=== PATIENT | female | born 1990 | race Caucasian/White ===

== ENCOUNTER 2020-12-17 23:37 | Emergency (ER) | payer OTHER ==
[~2020-12-17 23:37] MED LIST: ALBUTEROL; ASPIR 8181 MG PO; BUMETANIDE2 MG PO; CLONIDINE HCL0.3 MG PO; COREG 25MG TAB25 MG PO; FERROUS SULFAT325 MG PO; GABAPENTIN600 MG PO; NORCO 10-325 T1 EACH PO; PAXIL40 MG PO; PHENERGAN 25 MG25 M1 PO; POTASSIUM CHLO20 ME2 PO; PROTONIX40 MG PO; XANAX0.5 MG PO
[2020-12-18 00:16] LABS: HEMOGLOBIN 10.6 gm/dl (12.3-15.3); RED BLOOD COUNT 4.53 M/UL (4.00-5.10); WHITE BLOOD COUNT 14.6 K/UL (4.5-11.0)
[2020-12-18 00:33] LABS: BUN/CREATININE RATIO 7 (0-10)
[2020-12-18] MEDS ORDERED: OMNICEF 300 MG300 MG PO (02:06)
== END 2020-12-18 02:42 | disposition home or self-care (01) ==
LOC: ER1 23:37
PROVIDERS: Physician Assistant
DX: I10 Essential (primary) hypertension (principal); N39.0 Urinary tract infection, site not specified; E87.6 Hypokalemia; Z20.822 Contact with and (suspected) exposure to COVID-19; Z79.899 Other long term (current) drug therapy
CPT/HCPCS: 71045; 80053; 81001; 82550; 82553; 83874; 84484; 85025; 87086; 93005; 99285; U0002

== ENCOUNTER 2021-09-30 12:25 | Inpatient (IN) | payer OTHER ==
[~2021-09-30] VITALS: Ht 162.6 cm; Wt 167.1 kg
[~2021-09-30 12:25] MED LIST changes: +OMNICEF 300 MG300 MG PO
[2021-09-30 13:46] LABS: HEMOGLOBIN 14.4 gm/dl (12.3-15.3); RED BLOOD COUNT 5.7 M/UL (4.00-5.10); WHITE BLOOD COUNT 28.9 K/UL (4.5-11.0)
[2021-09-30 14:16] LABS: BUN/CREATININE RATIO 23 (0-10)
[2021-09-30] MEDS ORDERED: ELIQUIS5 MG PO (21:39)
[2021-09-30] MEDS ORDERED: BUSPIRONE HCL15 MG PO (21:40)
[2021-09-30] MEDS ORDERED: ROBAXIN 750 MG750 MG PO (21:41)
[2021-09-30] MEDS ORDERED: METOPROLOL SUC100 MG PO (21:42)
[2021-09-30] MEDS ORDERED: BUPROPION XL150 MG PO (21:42)
[2021-09-30] MEDS ORDERED: ROPINIROLE HCL0.5 MG PO (21:43)
[2021-09-30] MEDS ORDERED: TIZANIDINE HCL4 MG PO (21:44)
[2021-09-30] MEDS ORDERED: PROAIR HFA8.5 GM INH (21:45)
[2021-09-30] MEDS ORDERED: CETIRIZINE HCL10 MG PO (21:46)
[2021-09-30] MEDS ORDERED: NAC600 MG PO (21:46)
[2021-09-30] MEDS ORDERED: LEVOFLOXACIN750 MG PO (21:47)
[2021-10-01 06:09] LABS: HEMOGLOBIN 12.5 gm/dl (12.3-15.3)
[2021-10-01 06:13] LABS: RED BLOOD COUNT 4.98 M/UL (4.00-5.10); WHITE BLOOD COUNT 17.8 K/UL (4.5-11.0)
[2021-10-02 06:15] LABS: HEMOGLOBIN 12.5 gm/dl (12.3-15.3); RED BLOOD COUNT 4.93 M/UL (4.00-5.10); WHITE BLOOD COUNT 20.4 K/UL (4.5-11.0)
[2021-10-02 06:55] LABS: BUN/CREATININE RATIO 20 (0-10)
[2021-10-02 12:47] LABS: CRYPTOCOCCUS NEOFORMANS/GATTII Not Detected (Negative); CYTOMEGALOVIRUS Not Detected (Negative); ENTEROVIRUS Not Detected (Negative); ESCHERICHIA COLI K1 Not Detected (Negative); HAEMOPHILUS INFLUENZAE Not Detected (Negative); HERPES SIMPLEX VIRUS 1 Not Detected (Negative); HERPES SIMPLEX VIRUS 2 Not Detected (Negative); HUMAN HERPESVIRUS 6 Not Detected (Negative); HUMAN PARECHOVIRUS Not Detected (Negative); LISTERIA MONOCYTOGENES Not Detected (Negative); NEISERRIA MENINGITIDIS Not Detected (Negative); STREPTOCOCCUS AGALACTIAE Not Detected (Negative); STREPTOCOCCUS PNEUMONIAE Not Detected (Negative); VARICELLA ZOSTER VIRUS Not Detected (Negative)
[2021-10-02 13:07] LABS: GLUCOSE,CSF 85 mg/dL (50-80); TOTAL PROTEIN,CSF 19 mg/dL (20-45)
[2021-10-02 14:40] LABS: RBC (AUTOMATED) 500 10^6 (0); WBC (AUTOMATED 29 10^3 (0-5)
[2021-10-03 05:52] LABS: HEMOGLOBIN 11.6 gm/dl (12.3-15.3); RED BLOOD COUNT 4.68 M/UL (4.00-5.10)
[2021-10-03 06:40] LABS: BUN/CREATININE RATIO 20 (0-10)
[2021-10-03 16:14] LABS: HEMATOCRIT 37.5 % (34.0-46.6)
[2021-10-04 07:03] LABS: HEMOGLOBIN 10.6 gm/dl (12.3-15.3); RED BLOOD COUNT 4.22 M/UL (4.00-5.10); WHITE BLOOD COUNT 13.7 K/UL (4.5-11.0)
[2021-10-04 07:52] LABS: BUN/CREATININE RATIO 17 (0-10)
[2021-10-05 05:45] LABS: HEMOGLOBIN 10.9 gm/dl (12.3-15.3); RED BLOOD COUNT 4.34 M/UL (4.00-5.10); WHITE BLOOD COUNT 11.8 K/UL (4.5-11.0)
[2021-10-06] MEDS ORDERED: BUTALB-ACETAMI1 EAC1 PO (16:15)
[2021-10-06] MEDS ORDERED: IMITREX20 MG (16:15)
[2021-10-06] MEDS ORDERED: CATAPRES 0.1MG0.1 MG PO (16:15)
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
== END 2021-10-06 19:39 | disposition home or self-care (01) | DRG 391 ==
LOC: ER1 12:25 → CDU 18:14 → MED SURG 4 21:01
PROVIDERS: Emergency Medicine; Registered Nurse; ADMIT Internal Medicine
PROC: 8E0ZXY6 Isolation (ICD-10-PCS; principal; 2021-09-30)
PROC: 00JU3ZZ Inspection of Spinal Canal, Percutaneous Approach (ICD-10-PCS; 2021-10-02)
DX: R10.13 Epigastric pain (principal); U07.1 COVID-19; J12.82 Pneumonia due to coronavirus disease 2019; I13.0 Hypertensive heart and chronic kidney disease with heart failure and stage 1 through stage 4 chronic kidney disease, or unspecified chronic kidney disease; N04.9 Nephrotic syndrome with unspecified morphologic changes; F15.23 Other stimulant dependence with withdrawal; Q61.3 Polycystic kidney, unspecified; R51.9 Headache, unspecified; R07.9 Chest pain, unspecified; F32.A Depression, unspecified; G89.29 Other chronic pain; F41.9 Anxiety disorder, unspecified; E87.6 Hypokalemia; E28.2 Polycystic ovarian syndrome; K21.9 Gastro-esophageal reflux disease without esophagitis; J30.9 Allergic rhinitis, unspecified; D50.9 Iron deficiency anemia, unspecified; G93.2 Benign intracranial hypertension; N18.9 Chronic kidney disease, unspecified; I50.9 Heart failure, unspecified; R07.89 Other chest pain; T38.0X5A Adverse effect of glucocorticoids and synthetic analogues, initial encounter; M54.50 Low back pain, unspecified; E66.01 Morbid (severe) obesity due to excess calories; R00.0 Tachycardia, unspecified; D63.1 Anemia in chronic kidney disease; Z90.49 Acquired absence of other specified parts of digestive tract; Z98.890 Other specified postprocedural states; Z90.89 Acquired absence of other organs; Z82.49 Family history of ischemic heart disease and other diseases of the circulatory system; Z83.3 Family history of diabetes mellitus; Z79.82 Long term (current) use of aspirin; Z79.899 Other long term (current) drug therapy
CPT/HCPCS: ECHO; 36415; 70450; 70491; 71045; 76705; 80048; 80053; 80202; 81001; 81270; 82550; 82553; 82607; 82728; 82747; 82945; 83540; 83550; 83605; 83615; 83690; 83735; 83874; 83880; 83921; 84132; 84157; 84484; 84703; 85025; 85379; 85610; 85652; 85730; 86140; 87040; 87070; 87205; 87483; 89051; 93005; 93306; 96372; 96374; 96375; 96376; 99285; G0378; J0360; J0696; J1120; J1650; J1885; J2270; J3030; J3370; J7050; J7070; Q9957; Q9967; U0002

== ENCOUNTER → 2022-03-26 | Outpatient (CLI) | payer OTHER ==
[~2022-03-26] MED LIST changes: +BUPROPION XL150 MG PO; +BUSPIRONE HCL15 MG PO; +BUTALB-ACETAMI1 EAC1 PO; +CATAPRES 0.1MG0.1 MG PO; +CETIRIZINE HCL10 MG PO; +ELIQUIS5 MG PO; +IMITREX20 MG; +LEVOFLOXACIN750 MG PO; +METOPROLOL SUC100 MG PO; +NAC600 MG PO; +PROAIR HFA8.5 GM INH; +ROBAXIN 750 MG750 MG PO; +ROPINIROLE HCL0.5 MG PO; +TIZANIDINE HCL4 MG PO
== END ==
LOC: KOH-I 14:04
DX: M25.562 Pain in left knee (principal); M25.561 Pain in right knee; M47.812 Spondylosis without myelopathy or radiculopathy, cervical region; M17.0 Bilateral primary osteoarthritis of knee; M50.321 Other cervical disc degeneration at C4-C5 level
CPT/HCPCS: 72040; 73562

== ENCOUNTER 2022-07-29 22:48 | Emergency (ER) | payer OTHER ==
[2022-07-30 00:59] LABS: HEMOGLOBIN 11.9 gm/dl (12.3-15.3); RED BLOOD COUNT 4.87 M/UL (4.00-5.10)
[2022-07-30 01:16] LABS: BUN/CREATININE RATIO 14 (0-10)
== END 2022-07-30 03:30 | disposition home or self-care (01) ==
LOC: ER1 22:48
PROVIDERS: Physician Assistant Medical
DX: S09.90XA Unspecified injury of head, initial encounter (principal); R07.89 Other chest pain; Z88.6 Allergy status to analgesic agent; Z79.01 Long term (current) use of anticoagulants; W01.10XA Fall on same level from slipping, tripping and stumbling with subsequent striking against unspecified object, initial encounter
CPT/HCPCS: 70450; 71101; 72125; 80053; 85025; 93005; 96374; 96375; 99284; J2270; J2405

== ENCOUNTER 2022-08-10 04:11 | Observation (INO) | payer OTHER ==
[~2022-08-10] VITALS: Ht 162.6 cm; Wt 158.3 kg
[2022-08-10 05:29] LABS: HEMOGLOBIN 11.8 gm/dl (12.3-15.3); RED BLOOD COUNT 4.84 M/UL (4.00-5.10); WHITE BLOOD COUNT 15.3 K/UL (4.5-11.0)
[2022-08-10 05:57] LABS: BUN/CREATININE RATIO 14 (0-10)
[2022-08-10] MEDS ORDERED: CLONIDINE HCL0.3 MG PO (13:53)
[2022-08-10] MEDS ORDERED: ELIQUIS5 MG PO (13:53)
[2022-08-10] MEDS ORDERED: HYDRALAZINE HC100 MG PO (13:55)
[2022-08-10] MEDS ORDERED: LABETALOL HCL100 MG PO (13:56)
[2022-08-10] MEDS ORDERED: ASPERCREME LID1 EACH TP (13:56)
[2022-08-10] MEDS ORDERED: ZOFRAN 4 MG TAB4 MG PO (13:58)
[2022-08-10] MEDS ORDERED: ZAROXOLYN/DIULO5 MG PO (13:58)
[2022-08-10] MEDS ORDERED: AJOVY AUTO225 MG/1.5 SQ (13:59)
[2022-08-10] MEDS ORDERED: HYDROCODON-ACE1 EAC6 PO (14:00)
[2022-08-10] MEDS ORDERED: GABAPENTIN600 MG PO (14:01)
[2022-08-10] MEDS ORDERED: FLOVENT 110.088 GM/I PO (14:01)
[2022-08-10] MEDS ORDERED: PHENAZOPYRIDIN100 MG PO (14:02)
[2022-08-10] MEDS ORDERED: CYMBALTA 30 MG30 MG PO (14:03)
[2022-08-10] MEDS ORDERED: BENTYL 20MG TAB20 MG PO (14:03)
[2022-08-10] MEDS ORDERED: VITAMIN D325 MCG PO (14:04)
[2022-08-10] MEDS ORDERED: VITAMIN B-121000 MC3 PO (14:04)
[2022-08-10] MEDS ORDERED: ACETAMINOPHEN500 MG PO (14:05)
--- NOTE | 2022-08-11 00:53 | NUR ---
CONTACTED [employer] ADMIN DR. YON URENA DUE TO PATIENT COMPLAINING OF SEVERE PAIN IN THE HEAD, VOMITING, TINGLING IN LIPS AND LEFT HAND AND LEFT LEG AND FOOT. DR. URENA ORDERED A STAT CT OF THE HEAD TO RULE OUT STROKE. PATIENT TRANSPORTED TO CT BY STRETCHER. PATIENT STATED THAT [employer] STAFF INSTRUCTED HER TO NOTIFIY STAFF IF SHE HAD ANOTHER "EPISODE" LIKE THIS.
[2022-08-11 02:51] LABS: HEMOGLOBIN 11.2 gm/dl (12.3-15.3); RED BLOOD COUNT 4.71 M/UL (4.00-5.10)
[2022-08-11 03:09] LABS: BUN/CREATININE RATIO 12 (0-10)
[2022-08-11] MEDS ORDERED: ATORVASTATIN CA20 MG PO (08:45)
[2022-08-11] MEDS ORDERED: ASPIRIN EC81 MG PO (08:45)
== END 2022-08-11 12:00 | disposition home or self-care (01) ==
LOC: ER1 04:11 → CDU 09:46 → M/S 13:58
PROVIDERS: Physician Assistant Medical; Student in an Organized Health Care Education/Training Program; ADMIT Internal Medicine
DX: R53.1 Weakness (principal); D72.829 Elevated white blood cell count, unspecified; I13.0 Hypertensive heart and chronic kidney disease with heart failure and stage 1 through stage 4 chronic kidney disease, or unspecified chronic kidney disease; N18.9 Chronic kidney disease, unspecified; I50.9 Heart failure, unspecified; E78.5 Hyperlipidemia, unspecified; G89.29 Other chronic pain; M54.9 Dorsalgia, unspecified; J98.11 Atelectasis; G93.2 Benign intracranial hypertension; E66.01 Morbid (severe) obesity due to excess calories; Z68.43 Body mass index [BMI] 50.0-59.9, adult; Z86.16 Personal history of COVID-19; Z88.6 Allergy status to analgesic agent; Z79.01 Long term (current) use of anticoagulants; Z79.891 Long term (current) use of opiate analgesic; Z79.899 Other long term (current) drug therapy
CPT/HCPCS: ECHO; 36415; 70450; 70496; 70498; 71045; 80048; 80053; 80061; 81001; 82550; 82553; 83036; 83735; 84484; 84703; 85025; 85027; 85379; 85610; 85652; 85730; 86140; 87086; 93005; 93306; 94640; 94664; 94760; 99285; G0378; Q9967